=== PATIENT | male | born 1950 | race Caucasian/White ===

== ENCOUNTER → 2017-08-14 | Outpatient (CLI) | payer OTHER ==
[2015-09-29 13:07] VITALS: BP 106/62
[2017-08-14 10:08] LABS: CREATININE 1.52 mg/dL (0.70-1.30)
--- NOTE | 2017-08-14 11:23 | CT ---
CT neck soft tissue with contrast Indication: Left-sided neck swelling, painful swallowing for 10 days. Family history of throat cancer . Comparison: None Technique: CT images of the neck soft tissues were obtained with IV contrast per protocol. Automatic exposure control was utilized. Findings: The lower brain is grossly unremarkable. The lung apices are clear. Severe left-sided coron kavin artery disease is noted. No upper mediastinal adenopathy is observed. There is multilevel cervical spondylosis, with moderate to severe discogenic and uncovertebral degene rative disease at the C4-5. No aggressive osseous lesions identified. There is a skin marker in the left infraauricular region overlying the inferior parotid. No underlyin g mass, adenopathy, or collection is observed. There is asymmetric mucosal enhancement within the left side of Waldeyer's ring (for example axial im age 89). No discrete mass within the nasopharynx, oropharynx, hypopharynx, larynx, or infraglottic a ir[place] identified. The thyroid, submandibular, and parotid glands are unremarkable. The jugular veins and carotid arteries are grossly patent. Impression: No evidence for soft tissue mass or adenopathy, specifically in the region of interest. The parotid g lands are unremarkable. Asymmetric mucosal enhancement within the left side of Waldeyer's ring is nonspecific, but suggests p haryngitis. Correlation is recommended. Cervical spondylosis, coronary artery disease, and other findings as above. Reported By:
== END ==
LOC: RAD 09:24
PROVIDERS: ATTEND Nurse Practitioner Family
DX: E03.8 Other specified hypothyroidism (principal); R60.0 Localized edema; R22.1 Localized swelling, mass and lump, neck; H66.92 Otitis media, unspecified, left ear; E11.65 Type 2 diabetes mellitus with hyperglycemia; M47.892 Other spondylosis, cervical region
CPT/HCPCS: 36415; 70491; 82565; 84520; A4222